=== PATIENT | female | born 1975 | race African-American/Black ===

== ENCOUNTER 2021-07-16 15:36 | Emergency (ER) | payer OTHER ==
[2021-07-16 15:59] VITALS: BMI 23.0
[2021-07-16] MEDS ORDERED: SODIUM CHLORIDE 0.9% 500 ML INFUS.BAG IV ONE (17:05)
[2021-07-16] MEDS ORDERED: ACETAMINOPHEN 500 MG TABLET (FP) PO ONE (17:06)
[2021-07-16] MEDS ORDERED: ACETAMINOPHEN 500 MG TABLET (FP) ONE (17:24)
[2021-07-16] MEDS ORDERED: LIDOCAINE 5% TOPICAL PATCH TP ONE (17:53)
[2021-07-16] MEDS ORDERED: KETOROLAC TROMETHAMINE 15 MG/ML VIAL IVPUSH ONE (17:53)
[2021-07-16] MEDS ORDERED: METHOCARBAMOL 500 MG TABLET PO ONE (17:53)
[2021-07-16 18:10] LABS: BASO % 0.7 % (0-2.0); EOS % 4.3 % (0-4.5); HEMATOCRIT 38.7 % (32.4-45.2); HEMOGLOBIN 12.6 GM/dL (10.7-15.3); LYMPH % 31.4 % (8-40); MCH 25.2 pg (25.7-33.7); MCHC 32.5 g/dl (32.0-36.0); MEAN CELL VOLUME 77.7 fl (80-96); MONO % 10.3 % (3.8-10.2); NEUT % 53.3 % (42.8-82.8); PLATELET COUNT 343 10^3/uL (134-434); RBC 4.98 M/mm3 (3.60-5.2); RDW 14.3 % (11.6-15.6); WHITE BLOOD COUNT 7.7 K/mm3 (4.0-10.0)
[2021-07-16] MEDS ORDERED: METHOCARBAMOL 500 MG TABLET ONE (18:10)
[2021-07-16] MEDS ORDERED: LIDOCAINE 5% TOPICAL PATCH ONE (18:11)
[2021-07-16 18:34] LABS: CHLORIDE 108 mmol/L (98-107); SODIUM 142 mmol/L (136-145)
[2021-07-16 18:36] LABS: ANION GAP 6 MMOL/L (8-16); BLOOD UREA NITROGEN 13.2 mg/dL (7-18); CALCIUM 8.9 mg/dL (8.5-10.1); CO2 27 mmol/L (21-32)
[2021-07-16 18:37] LABS: GLUCOSE,RANDOM 77 mg/dL (74-106)
[2021-07-16 18:39] LABS: CREATININE 0.7 mg/dL (0.55-1.3); SGPT/ALT 22 U/L (13-61)
[2021-07-16 18:40] LABS: SGOT/AST 21 U/L (15-37)
[2021-07-16 18:41] LABS: BILIRUBIN,TOTAL 0.3 mg/dL (0.2-1); TOT PROT 8.1 g/dl (6.4-8.2)
[2021-07-16 18:42] LABS: ALK PHOS 75 U/L (45-117)
[2021-07-16 19:37] VITALS: BP 91/55; PULSE 69; TEMP 98.2
[2021-07-16] MEDS ORDERED: LIDOCAINE PATCH REMOVAL MC ONE (22:00)
== END 2021-07-16 20:11 | disposition home or self-care (01) ==
LOC: JER 15:36
PROC: 3E033GC Introduction of Other Therapeutic Substance into Peripheral Vein, Percutaneous Approach (ICD-10-PCS; principal; 2021-07-16)
DX: R07.9 Chest pain, unspecified (principal); M54.2 Cervicalgia
CPT/HCPCS: 36415; 71046-TC-FY; 80053; 82550; 82553; 84443; 84484; 85025; 93005; 93010; 99285-25